=== PATIENT | male | born 1990 | race Caucasian/White ===

== ENCOUNTER 2018-12-20 02:39 | Emergency (ER) | payer SELFPAY ==
[~2018-12-20] VITALS: Ht 172.7 cm; Wt 63.3 kg
[2018-12-20 02:44] VITALS: BP 146/85; PULSE 96; RESP 17; Ht 172.7 cm; Wt 63.3 kg
== END 2018-12-20 03:30 | disposition left against medical advice (07) ==
LOC: FTE 02:39
DX: Z53.21 Procedure and treatment not carried out due to patient leaving prior to being seen by health care provider (principal)